=== PATIENT | male | born 1975 | race Caucasian/White ===

== ENCOUNTER 2022-08-16 14:00 | Outpatient (CLI) | payer MEDICARE, OTHER, SELFPAY ==
[2022-08-16 22:12] LABS: Albumin* 3.6 g/dL (3.3-5.0)
[2022-08-16 22:13] LABS: Chloride* 106 mmol/L (96-114); Potassium* 4.1 mmol/L (3.6-5.1); Sodium* 136 mmol/L (135-149)
[2022-08-16 22:14] LABS: Ethanol* < 0.01 % (0.01-0.03)
[2022-08-16 22:15] LABS: Aspartate Amino Transferase* 157 U/L (12-35); Bilirubin Total* 11.3 mg/dL (0.1-1.5); Blood Urea Nitrogen* 13 mg/dL (5-24); Carbon Dioxide* 21 mmol/L (20-32); Cholesterol* 173 mg/dL (90-199); Creatinine* 0.7 mg/dL (0.5-1.5); Estimated Glomerular Filt Rate 115 ml/min; Total Protein* 7.6 g/dL (6.0-8.3)
[2022-08-16 22:16] LABS: Alanine Aminotransferase* 66 U/L (4-50); Alkaline Phosphatase* 232 U/L (40-150); Calcium* 8.9 mg/dL (8.4-10.6); Glucose* 114 mg/dL (60-115); HDL Cholesterol* 13 mg/dL (>=40); LDL Cholesterol Calculated 124 mg/dL (<100); Triglycerides* 182 mg/dL (40-149)
== END 2022-08-16 14:01 | disposition home or self-care (01) ==
PROVIDERS: PCP Family Medicine; Visit Provider Family Medicine
DX: I10 Essential (primary) hypertension (principal); K76.9 Liver disease, unspecified; G47.00 Insomnia, unspecified; M17.0 Bilateral primary osteoarthritis of knee
CPT/HCPCS: 80053; 80061; 82077

== ENCOUNTER 2022-09-05 08:21 | Outpatient (CLI) | payer MEDICARE, OTHER, SELFPAY ==
--- NOTE | 2022-09-05 08:45 | CRLHL7_ITS ---
For Patients: As a result of the Century Cures Act, medical imaging exams and procedure reports are released immediately into your electronic medical record. You may view this report before your referring provider. If you have questions, please contact your health care provider. HISTORY: cirrhosis, TIPS TECHNIQUE: Grayscale ultrasound examination of the abdomen and retroperitoneum with 2D and spectral analysis and color Doppler interrogation of the hepatic vessels. COMPARISON: None. FINDINGS: The liver is diffusely coarsened and macronodular in contour. Trace ascites is present. The liver measures 20.7 cm. The common bile duct measures 4 millimeters. The gallbladder is distended with hyperechoic foci associated with the dependent wall consistent with small gallstones. The gallbladder wall is not thickened. The right kidney is normal without hydronephrosis. The visualized pancreas is heterogeneous. The right kidney measures 10.5 cm. Aorta is non aneurysmal. No IVC thrombus. Normal flow within the portal veins. TIPS is patent. Flow visualized within the hepatic veins. Normal flow within the splenic vein. IMPRESSION: TIPS is patent. Cirrhotic liver with mild ascites. No splanchnic venous thrombus. Dictated by Nelson Gutierrez MD @ 09/05/2022 11:20:19 AM (Electronically Signed)
== END 2022-09-05 08:22 | disposition home or self-care (01) ==
PROVIDERS: PCP Family Medicine; Visit Provider Family Medicine
DX: K74.60 Unspecified cirrhosis of liver (principal); R18.8 Other ascites
CPT/HCPCS: 76705; 93975

== ENCOUNTER 2022-09-19 09:26 | Outpatient (CLI) | payer MEDICARE, OTHER, SELFPAY | END 2022-09-19 09:27 | disposition home or self-care (01) | PROVIDERS: PCP Family Medicine; Visit Provider Emergency Medicine | DX: L03.90 Cellulitis, unspecified (principal) | CPT/HCPCS: 86140; 87070; 87186 ==

== ENCOUNTER 2022-11-21 13:33 | Outpatient (CLI) | payer MEDICARE, OTHER, SELFPAY | END 2022-11-21 13:34 | disposition home or self-care (01) | LOC: AMB 11-26 09:52 | PROVIDERS: PCP Family Medicine; Visit Provider Family Medicine | DX: R04.0 Epistaxis (principal); R53.1 Weakness | CPT/HCPCS: A0425; A0429 ==

== ENCOUNTER 2022-11-21 14:20 | Inpatient (IN) | payer MEDICARE, OTHER, SELFPAY ==
[2022-11-21] VITALS (37 sets, daily range): BP systolic 47–155; BP diastolic 35–76; PULSE 112–230; RESP 16–18; TEMP 36.2–36.7; O2SAT 79–100; BMI 32.3; BMI 35.2
--- NOTE | 2022-11-21 15:08 | ED_ITS ---
HPI - General Adult General Time Seen by Provider: 15:08 Date Seen: 11/21/22 Chief complaint: Weakness Stated complaint: Weakness Nosebleed Time Seen by Provider: 11/21/22 14:46 Source: patient, EMS and RN notes reviewed Mode of arrival: EMS Limitations: no limitations History of Present Illness HPI narrative: Patient is a 47-year-old male with a history of liver disease that admits to increasing jaundice. His fiancee feels he has had more confusion. He has not been taking his lactulose because of the ensuing diarrhea it causes. He is drinking some. He has had a nose bleed for last 3 days. It keeps returning. He has been having increasing weakness and falls. He did fall and hurt his right hip but he states it is not broken. Have discussed with him I would like to x-ray this. He does ultimately allow me to order an x-ray. He is complaining of weakness. No fevers. He thinks he was in to a doctor maybe 3 or 4 months ago, was told he did not need a paracentesis, thought there was maybe only a L there at the time. He has had to have paracentesis in the past. Denies any abdominal pain. Feels like his appetite has been good and he is eating okay. He is actually asking for something to drink right now. Patient reports that he has had a stent put in his liver before, presuming this is a tips procedure. Related Data Home Medications Medication Instructions Recorded Confirmed allopurinol 300 mg tablet 300 mg PO 06/06/22 09/19/22 amlodipine 5 mg tablet 5 mg PO 06/06/22 09/19/22 baclofen 5 mg tablet 5 mg PO 06/06/22 09/19/22 esomeprazole magnesium 40 mg 40 mg PO 06/06/22 09/19/22 capsule,delayed release gabapentin 100 mg capsule 100 mg PO 06/06/22 09/19/22 lisinopril 40 mg tablet 40 mg PO 06/06/22 09/19/22 furosemide 20 mg tablet 20 mg PO .Daily as needed PRN 09/19/22 09/19/22 spironolactone 50 mg tablet 50 mg PO BID PRN 09/19/22 09/19/22 Previous Rx's Medication Instructions Recorded rifaximin 550 mg tablet (Xifaxan) 550 mg PO BID #60 tabs 08/16/22 ropinirole 0.5 mg tablet 0.5 - 1 mg (1 - 2 x 0.5 mg) PO BID 08/16/22 PRN restless legs #60 tabs tramadol 50 mg tablet 50 mg PO BID PRN pain #60 tabs 08/16/22 zolpidem 5 mg tablet 5 mg PO QHS #30 tabs 08/16/22 hydroxyzine HCl 25 mg tablet 25 mg PO BID PRN itching #60 tabs 09/02/22 prednisone 20 mg tablet 20 mg PO BID #10 tabs 09/02/22 cefadroxil 500 mg capsule 500 mg PO BID #20 caps 09/19/22 doxycycline hyclate 100 mg capsule 100 mg PO BID #20 caps 09/19/22 oxycodone 5 mg tablet 5 mg PO QDAY PRN pain #10 tabs 09/19/22 levofloxacin 500 mg tablet 500 mg PO Q24H #10 tabs 09/22/22 Allergies Allergy/AdvReac Type Severity Reaction Status Date / Time adhesive tape Allergy Unknown Rash Verified 11/21/22 14:25 Review of Systems Status of ROS: Reports: 6 or more systems reviewed and unremarkable except as noted in History and below [facility] Medical History (Updated 11/21/22 @ 20:32 by Shelly Frias MD) Anemia ?D64.9 - Anemia, unspecified (ICD-10) Calf pain ?M79.669 - Pain in unspecified lower leg (ICD-10) Cellulitis ?L03.90 - Cellulitis, unspecified (ICD-10) Alcohol abuse ?F10.10 - Alcohol abuse, uncomplicated (ICD-10) Thrombocytopenia ?D69.6 - Thrombocytopenia, unspecified (ICD-10) Chronic liver disease ?K76.9 - Liver disease, unspecified (ICD-10) MAC (obstructive sleep apnea) ?G47.33 - Obstructive sleep apnea (adult) (pediatric) (ICD-10) Elevated LFTs ?R79.89 - Other specified abnormal findings of blood chemistry (ICD-10) Hyperlipidemia ?E78.5 - Hyperlipidemia, unspecified (ICD-10) FSHD (facioscapulohumeral muscular dystrophy) ?G71.02 - Facioscapulohumeral muscular dystrophy (ICD-10) Hypertension ?I10 - Essential (primary) hypertension (ICD-10) Gout ?M10.9 - Gout, unspecified (ICD-10) GERD (gastroesophageal reflux disease) ?K21.9 - Gastro-esophageal reflux disease without esophagitis (ICD-10) Surgical History (Updated 06/06/22 @ 10:29 by Marilee Aguilar ~ [facility], [facility]) History of surgery of liver ?Z98.890 - Other specified postprocedural states (ICD-10) Hernia ?K46.9 - Unspecified abdominal hernia without obstruction or gangrene (ICD- 10) Family History (Updated 06/06/22 @ 10:30 by Marilee Aguilar ~ [facility], [facility]) Mother No problems noted. Social History Smoking Status: Current every day smoker What tobacco products do you use: cigarettes Smoking packs per day: 0.25 Smoking cigarettes per day: 5.0 Do you use any of these nicotine containing products: None Second hand tobacco smoke exposure: No How often do you have a drink containing alcohol: 2-4 times a month How many standard drinks containing alcohol do you have on a typical day: 1 or 2 AUDIT-C Alcohol total score: 2 Non-prescribed substance use: denies use service: No Exam Const: Vital Signs, click to edit/add: Vital Signs - 24 hr 11/21/22 14:25 11/21/22 14:47 11/21/22 15:01 Temperature 97.2 F L Pulse Rate 121 H 124 H Pulse Rate [Pulse Oximeter] 121 H Respiratory Rate 16 Blood Pressure 47/35 L Blood Pressure [Le ft Upper Arm] 125/50 L Pulse Oximetry 100 96 95 Oxygen Delivery Me thod Room Air 11/21/22 15:02 11/21/22 15:03 11/21/22 15:04 Temperature Pulse Rate 126 H 122 H 124 H Pulse Rate [Pulse Oximeter] Respiratory Rate Blood Pressure 114/51 L Blood Pressure [Le ft Upper Arm] Pulse Oximetry 99 95 97 Oxygen Delivery Me thod 11/21/22 15:15 11/21/22 15:30 11/21/22 15:45 Temperature Pulse Rate 121 H 120 H 121 H Pulse Rate [Pulse Oximeter] Respiratory Rate Blood Pressure Blood Pressure [Le ft Upper Arm] Pulse Oximetry 96 95 98 Oxygen Delivery Me thod 11/21/22 15:57 11/21/22 16:31 11/21/22 16:32 Temperature Pulse Rate 123 H Pulse Rate [Pulse Oximeter] Respiratory Rate Blood Pressure 130/58 L Blood Pressure [Le ft Upper Arm] Pulse Oximetry 100 91 Oxygen Delivery [facility] 11/21/22 17:02 11/21/22 17:25 11/21/22 17:30 Temperature Pulse Rate 138 H Pulse Rate [Pulse Oximeter] Respiratory Rate Blood Pressure 117/48 L Blood Pressure [Le ft Upper Arm] Pulse Oximetry 79 L 79 L Oxygen Delivery [facility] 11/21/22 17:31 11/21/22 17:45 11/21/22 18:00 Temperature Pulse Rate 230 H 127 H Pulse Rate [Pulse Oximeter] Respiratory Rate Blood Pressure 142/62 H Blood Pressure [Le ft Upper Arm] Pulse Oximetry 79 L 80 L 80 L Oxygen Delivery [facility] 11/21/22 18:02 11/21/22 18:03 11/21/22 18:32 Temperature Pulse Rate 133 H 117 H Pulse Rate [Pulse Oximeter] Respiratory Rate Blood Pressure 155/46 H 107/59 L Blood Pressure [Le ft Upper Arm] Pulse Oximetry 80 L 82 L Oxygen Delivery [facility] 11/21/22 18:44 11/21/22 18:45 11/21/22 19:00 Temperature Pulse Rate 122 H 122 H 123 H Pulse Rate [Pulse Oximeter] Respiratory Rate Blood Pressure Blood Pressure [Le ft Upper Arm] Pulse Oximetry 93 93 95 Oxygen Delivery [facility] 11/21/22 19:02 11/21/22 19:13 11/21/22 19:15 Temperature 97.8 F Pulse Rate 119 H 122 H 120 H Pulse Rate [Pulse Oximeter] Respiratory Rate 16 Blood Pressure 109/41 L 109/41 L Blood Pressure [Le ft Upper Arm] Pulse Oximetry 92 90 91 Oxygen Delivery [facility] 11/21/22 19:29 11/21/22 19:30 11/21/22 20:11 Temperature 98.0 F 98.0 F 98.0 F Pulse Rate 121 H 115 H Pulse Rate [Pulse Oximeter] 121 H Respiratory Rate 16 16 18 Blood Pressure 116/44 L 125/46 L Blood Pressure [Le ft Upper Arm] 116/44 L Pulse Oximetry 94 94 Oxygen Delivery [facility] Room Air Documenting provider has reviewed patient's vital signs: yes Common normals: no apparent distress, oriented x3, no limitations and alert General appearance: cooperative, comfortable, disheveled, ill appearing and frail appearing Orientation/consciousness: Yes awake, Yes oriented to person, Yes oriented to place and Yes oriented to time HENMT: Common normals: normocephalic, head/scalp atraumatic, hearing grossly normal bilaterally and external ears normal Head and scalp: normocephalic and atraumatic External ear: external ears normal Other: Has the blue nasal clamp on. He can see a little bit of nonactive bleeding along the entrance of the right nares. Oropharynx normal, cannot see any active bleeding down the posterior pharynx. Eye: Common normals: PERRL and EOMs intact bilaterally Periorbital: periorbital findings normal Eyelid: eyelids normal Sclera: sclera abnormal (Bilateral scleral icterus) Laterality of scleral abnormality: bilateral Pupil: PERRL Neck & C-Spine: Common normals: full ROM, no lymphadenopathy, supple, no meningeal signs and thyroid normal Thyroid: thyroid normal Chest: Other: Patient has a multitude of spider hemangiomas on upper chest. Skin is jaundice. Resp: Common normals: normal respiratory effort, no retractions, no use of accessory muscles and clear to auscultation bilaterally Auscultation: clear to auscultation bilaterally Cardio: Common normals: regular rhythm, S1 normal heart sound, S2 normal heart sound, no gallops, no clicks, no murmurs and no rub Rate: tachycardic Rhythm: regular rhythm Heart sounds: S1 normal and S2 normal GI: Other: Patient's abdomen does look mildly distended but is soft. I do not feel a defin ite fluid wave. I do not feel any masses organomegaly. He is certainly not tender. Extremity: Other: Both of his lower extremities are significantly swollen and have some erythema in venous skin changes. Anteriorly on both lower extremities the skin is thickened, lichenified-like. Does not have any palpable calf tenderness when he squeeze but complains of significant tenderness on the distal anterolateral skin the area. I see no open wounds. He does have some generalized serous drainage that I can see through the skin on this lower extremity. Neuro: Common normals: oriented x3, CN's II-XII intact bilaterally and moves all extremities Sensorium/orientation: awake, alert, oriented to person, oriented to place and oriented to time Meningeal signs: no meningeal signs Course Course Hospital Course: With his clinical exam an active nasal bleeding, have reviewed with the patient that I am concerned about decompensated liver disease. The nasal clamp seems to be controlling the bleeding at this time. I would really like to see where his platelets and coags are at. He very well may need the nose packed. But we are in a stable situation at this time and I think if he needs some interventions with medications are platelets, would be beneficial to no before we have further bleeding. Will need to get labs obviously including functional liver assessment labs. Reevaluation(s) Reevaluation #1: Have reviewed with patient his liver findings, anemia. Reviewed the severity of the situation. He really does not want to go to any other hospital but have stressed to them that there are significant limits as to what we can handle here. It comes down to the fact that if he wants any chance at meaningful survival long-term, would recommend that he get some place where they have GI for further evaluation and management. Reviewed his alcohol level was 0.13. He states if he has not had a drink in a couple days how can still be that. He stated his liver isn't processing alcohol anymore. I reviewed with him that this is precisely what is happening. If he continues to drink he is undoubtedly going to kill himself. This may be a lot to take in for him but I do not say it on kindly to him. He really needs to know that there is really no safe amount of alcohol for him. We reviewed that his liver function is altered in his INR is at 2.69. His magnesium is low and will replace that as well. Time: 17:25 Reevaluation #2: Patient's family came out stating his nose was bleeding on the other side that he was feeling lightheaded. I went in to re-evaluate patient. He had a small little bloody serous drainage on a Kleenex, states he blew his nose a little. His right nostrils feeling plugged in reviewed with him that he needed to leave the packing in there. There is no active bleeding anywhere. His vitals were good. We reviewed the situation with inability to transfer with his other relatives that were here now. The hospitalists is willing to keep him. Patient is getting his blood at this time. He did talk about his like pain. Did order another 50 mcg IV fentanyl as I thought I was going to have to repack his nose on the left side. Turns out IV will not need it. He states his right leg was infected about 2 months ago. Did pass that on to the hospitalist as he is being moved down to the floor. Antibiotics were not initiated down here. I did not see any convincing evidence of her right lower extremity cellulitis when I compared to his left leg when I examined him earlier. Will have Dr. Castellanos reassess. Dr. Castellanos is aware that the patient is weight listed at [facility] but there is absolutely no time frame as to potential admission. Thus, patient is going to be placed on the floor. If there is the possibility for transfer or if he worsens, may need to re-evaluate bed status at all organizations tomorrow. Time: 20:06 Consultations Consultation #1: Nursing staff had been calling to see if there is potential transfers. There was nothing in the [facility] system, nothing at [place], nothing at [place], nothing in [facility], [facility] had no beds, [facility] potentially might be able to wait list him. I did subsequently speak with Dr. Quinonez from [facility] in [place] at 5:20 p.m.. If we cannot find placement for the patient locally around here, we can call him back and he may consider it but is not guaranting admission at this time. Time: 16:50 Vital Signs Vital signs: Initial Vital Signs Temperature 97.2 F L 11/21/22 14:25 Temperature Source Temporal Artery Scan 11/21/22 14:25 Pulse Rate 121 H 11/21/22 14:25 Pulse Rhythm Regular 11/21/22 14:25 Pulse Strength 3+ Normal 11/21/22 14:25 Respiratory Rate 16 11/21/22 14:25 Blood Pressure 125/50 L 11/21/22 14:25 Blood Pressure Mean 75 11/21/22 14:25 Blood Pressure Position Supine 11/21/22 14:25 Pulse Oximetry 100 11/21/22 14:25 Oxygen Delivery Method Room Air 11/21/22 14:25 Vital Signs Temperature 97.2 F L 11/21/22 14:25 Pulse Rate 121 H 11/21/22 14:25 Respiratory Rate 16 11/21/22 14:25 Blood Pressure 125/50 L 11/21/22 14:25 Pulse Oximetry 100 11/21/22 14:25 Oxygen Delivery Method Room Air 11/21/22 14:25 Temperature 98.0 F 11/21/22 20:11 Pulse Rate 115 H 11/21/22 20:11 Respiratory Rate 18 11/21/22 20:11 Blood Pressure 125/46 L 11/21/22 20:11 Pulse Oximetry 94 11/21/22 19:30 Oxygen Delivery Method Room Air 11/21/22 19:29 Medical Decision Making Lab Data Lab results reviewed: Yes I reviewed the patient's lab results Labs: Lab Results 11/21/22 Range/Units 15:37 WBC 15.01 H (4.50-11.00) K/uL RBC 1.95 L (4.30-5.90) m/uL Hgb 6.3 L* (13.5-17.5) gm/dL Hct 17.5 L (37.0-53.0) % MCV 90 (80-100) fL MCH 32 (26-34) pg MCHC 36 (32-36) gm/dL RDW Coeff of Zelda 18.4 H (11.5-15.5) % Plt Count 87 L (140-440) K/uL Neut % (Auto) 75.4 H (42.0-72.0) % Lymph % (Auto) 9.3 L (20-44) % [place] % (Auto) 10.7 (0.0-11.0) % Eos % (Auto) 2.7 (0.0-7.0) % Baso % (Auto) 0.5 (0.0-3.0) % Neut # (Auto) 11.30 H (1.7-7.0) K/uL Lymph # (Auto) 1.40 (0.90-2.90) K/uL [place] # (Auto) 1.60 H (0.00-0.90) K/UL Eos # (Auto) 0.40 (0.00-0.50) K/uL Baso # (Auto) 0.10 (0.00-0.30) K/uL INR 2.69 H (0.91-1.10) APTT 55 H (23-33) Seconds Sodium 118 L* (135-149) mmol/L Potassium 4.5 (3.6-5.1) mmol/L Chloride 92 L (96-114) mmol/L Carbon Dioxide 20 (20-32) mmol/L BUN 21 (5-24) mg/dL Creatinine 0.9 (0.5-1.5) mg/dL Estimated Creat Clear 111.37 Estimated GFR 106 ml/min Glucose 122 H (60-115) mg/dL Lactate 3.9 H (0.5-1.9) mmol/L Calcium 7.2 L (8.4-10.6) mg/dL Magnesium 1.4 L (1.5-2.6) mg/dL Total Bilirubin 10.4 H (0.1-1.5) mg/dL Direct Bilirubin 6.7 H (0.0-0.5) mg/dL AST 189 H (12-35) U/L ALT 65 H (4-50) U/L Alkaline Phosphatase 260 H (40-150) U/L Ammonia 21.0 (13.1-30.0) umol/L Total Protein 5.4 L (6.0-8.3) g/dL Albumin 2.0 L (3.3-5.0) g/dL Ethyl Alcohol 0.13 H (0.01-0.03) % Blood Type B Positive Antibody Screen NEGATIVE Crossmatch (AHG) See Detail Imaging Data Chest x-ray: Attestation: I have reviewed the pertinent imaging results. Radiologist's impression: Patient: RADHA GONZALEZ Facility:?[facility] Patient ID:?[id number] Site Patient ID:?[id number]. Site :?[id number] Study:?XRay Chest 1 VIEW-11/21/2022 4:43:30 PM Ordering Physician:?Altagracia Bravo Final Report: INDICATION: Injury COMPARISON: None TECHNIQUE: Single-view study FINDINGS: TUBES AND LINES: None. HEART AND MEDIASTINUM: The heart size is normal. The mediastinal contour appears normal for patient age. LUNGS AND PLEURAL SPACES: The lungs appear normal.The pleural spaces are unremarkable. OSSEOUS STRUCTURES: Age-appropriate appearance. No acute focal finding.Mild stable elevation right hemidiaphragm. IMPRESSION: No evidence of active pulmonary disease. Dictated by Yossi Diaz MD @ 11/21/2022 5:40:21 PM (Electronic Signature) XR right hip/pelvis: My impression: I Radiologist's impression: Patient: RADHA GONZALEZ Facility:?[facility] Patient ID:?[id number] Site Patient ID:?[id number]. Site :?[id number] Study:?XRay Hip Right 2 VIEWS 1 PELVIS-11/21/2022 4:44:43 PM Ordering Physician:?Altagracia Bravo Final Report: Indication: Injury with pain. Technique: Examination consists of an AP view of the pelvis and an AP and lateral view of the right hip Comparison: None Findings: Bones: Alignment is normal. No fractures or bone lesions. Joint spaces: Unremarkable. Soft tissues: Surgical clips in the pelvis. Impression: No acute fracture, dislocation or destructive process. Dictated by Yossi Diaz MD @ 11/21/2022 5:41:56 PM (Electronic Signature) XR right tib-fib: Attestation: I have reviewed the pertinent imaging results. Radiologist's impression: Patient: RADHA GONZALEZ Facility:?[facility] Patient ID:?[id number] Site Patient ID:?[id number]. Site :?[id number] Study:?XRay Extremity Right TIB/FIB 2 VIEWS-11/21/2022 4:42:57 PM Ordering Physician:?Altagracia Bravo Final Report: Indication: Injury Technique: Two views of the right tibia and fibula were acquired Comparison: None Findings: Mild deformity questioned of the medial tibial plateau. This may be projectional. Correlate with point tenderness in this area. Otherwise, there is no acute appearing finding involving the osseous of the right lower leg. Degenerative changes about the knee joint. Phleboliths in soft tissues. Soft tissue swelling Impression: Mild deformity questioned of the medial tibial plateau. This may be projectional. Correlate with point tenderness in this area. No other findings suggesting fracture. Dictated by Yossi Diaz MD @ 11/21/2022 5:30:43 PM (Electronic Signature) Note, patient's pain is lower in his leg, not anywhere near the area of question in the x-ray report. Critical Care Time Critical Care Time Critical Care Time: No Discharge Plan Discharge Clinical Impression: Epistaxis, Alcohol abuse, Acute blood loss anemia, Acute liver failure Patient Disposition: Admitted As Inpatient Condition: Unchanged Procedures Epistaxis Control Time Out Performed: Yes Nostril: Yes right Direct inspection: Yes unable to visualize Epistaxis treatment: Yes nasal tampon (Placed rhino rocket medium) Results of treatment: Yes bleeding controlled Estimated blood loss (if any): other (specify) (No bleeding currently, has had nasal clamp on and no active bleeding at this time) Complications: Yes none Conclusion: patient tolerated procedure
--- NOTE | 2022-11-21 15:17 | CRLHL7_ITS ---
For Patients: As a result of the Cures Act, medical imaging exams and procedure reports are released immediately into your electronic medical record. You may view this report before your referring provider. If you have questions, please contact your health care provider. Indication: Injury with pain. Technique: Examination consists of an AP view of the pelvis and an AP and lateral view of the right hip Comparison: None Findings: Bones: Alignment is normal. No fractures or bone lesions. Joint spaces: Unremarkable. Soft tissues: Surgical clips in the pelvis. Impression: No acute fracture, dislocation or destructive process. Dictated by Yossi Diaz MD @ 11/21/2022 5:41:56 PM (Electronically Signed)
--- NOTE | 2022-11-21 15:17 | CRLHL7_ITS ---
For Patients: As a result of the Cures Act, medical imaging exams and procedure reports are released immediately into your electronic medical record. You may view this report before your referring provider. If you have questions, please contact your health care provider. Indication: Injury Technique: Two views of the right tibia and fibula were acquired Comparison: None Findings: Mild deformity questioned of the medial tibial plateau. This may be projectional. Correlate with point tenderness in this area. Otherwise, there is no acute appearing finding involving the osseous of the right lower leg. Degenerative changes about the knee joint. Phleboliths in soft tissues. Soft tissue swelling Impression: Mild deformity questioned of the medial tibial plateau. This may be projectional. Correlate with point tenderness in this area. No other findings suggesting fracture. Dictated by Yossi Diaz MD @ 11/21/2022 5:30:43 PM (Electronically Signed)
--- NOTE | 2022-11-21 15:17 | CRLHL7_ITS ---
For Patients: As a result of the Cures Act, medical imaging exams and procedure reports are released immediately into your electronic medical record. You may view this report before your referring provider. If you have questions, please contact your health care provider. INDICATION: Injury COMPARISON: None TECHNIQUE: Single-view study FINDINGS: TUBES AND LINES: None. HEART AND MEDIASTINUM: The heart size is normal. The mediastinal contour appears normal for patient age. LUNGS AND PLEURAL SPACES: The lungs appear normal.The pleural spaces are unremarkable. OSSEOUS STRUCTURES: Age-appropriate appearance. No acute focal finding.Mild stable elevation right hemidiaphragm. IMPRESSION: No evidence of active pulmonary disease. Dictated by Yossi Diaz MD @ 11/21/2022 5:40:21 PM (Electronically Signed)
[2022-11-21] MEDS: fentaNYL 100 MCG/2 ML inj 25 MCG IVP (15:26)
[2022-11-21 15:42] LABS: Lactate* 3.9 mmol/L (0.5-1.9)
[2022-11-21 15:45] LABS: Immature Granulocytes Pct Auto 1.4 %; Mean Corpuscular HGB Conc 36 gm/dL (32-36); Mean Corpuscular Volume 90 fL (80-100)
[2022-11-21 15:48] LABS: Slide Review Reflex No; White Blood Count* 15.01 K/uL (4.50-11.00)
[2022-11-21 15:49] LABS: Hematocrit 17.5 % (37.0-53.0); Hemoglobin* 6.3 gm/dL (13.5-17.5); Mean Corpuscular Hemoglobin 32 pg (26-34); Platelet Count* 87 K/uL (140-440); RDW Coefficient of Variation % 18.4 % (11.5-15.5); Red Blood Count 1.95 m/uL (4.30-5.90)
[2022-11-21 15:50] LABS: Basophils Percent Auto 0.5 % (0.0-3.0); Eosinophils Percent Auto 2.7 % (0.0-7.0); Lymphocytes Percent Auto 9.3 % (20-44); Monocytes Percent Auto 10.7 % (0.0-11.0); Neutrophils Percent Auto 75.4 % (42.0-72.0)
[2022-11-21 15:58] LABS: Chloride* 92 mmol/L (96-114)
[2022-11-21 15:59] LABS: Potassium* 4.5 mmol/L (3.6-5.1)
[2022-11-21 16:00] LABS: Creatinine* 0.9 mg/dL (0.5-1.5); Est. Creatinine Clearance* 111.37; Estimated Glomerular Filt Rate 106 ml/min
[2022-11-21 16:01] LABS: Alanine Aminotransferase* 65 U/L (4-50); Alkaline Phosphatase* 260 U/L (40-150); Aspartate Amino Transferase* 189 U/L (12-35); Bilirubin Direct* 6.7 mg/dL (0.0-0.5); Bilirubin Total* 10.4 mg/dL (0.1-1.5); Blood Urea Nitrogen* 21 mg/dL (5-24); Calcium* 7.2 mg/dL (8.4-10.6); Carbon Dioxide* 20 mmol/L (20-32); Glucose* 122 mg/dL (60-115); Total Protein* 5.4 g/dL (6.0-8.3)
[2022-11-21 16:02] LABS: Ethanol* 0.13 % (0.01-0.03); Magnesium* 1.4 mg/dL (1.5-2.6)
[2022-11-21 16:04] LABS: INR 2.69 (0.91-1.10); Prothrombin Time 29.9 Seconds
[2022-11-21 16:05] LABS: Partial Thromboplastin Time* 55 Seconds (23-33)
[2022-11-21 16:07] LABS: Sodium* 118 mmol/L (135-149)
--- NOTE | 2022-11-21 16:13 | PC.NURSE ---
NA 118. notified. No beds at [facility] who has ENT. Patient is on waitlist at [facility]. 6-8 hour wait.
--- NOTE | 2022-11-21 16:51 | ED.NURSE ---
[facility] pt placement called and stated they do have an extensive waitlist, which is days. Dr Jackson updated.
[2022-11-21] MEDS: PHYTONADIONE (VIT K1) 5 MG in 0.9 % SODIUM CHLORIDE 50 ml 50 ML 100 MG IVPB (18:05)
[2022-11-21] MEDS: PANTOPRAZOLE SODIUM 40 MG INJ IVP (18:47)
[2022-11-21] MEDS: MAGNESIUM IV 4 GM/100 ML PIGGYBACK IVPB ×2 (18:52→23:41)
[2022-11-21] MEDS: 0.9 % SODIUM CHLORIDE 250 ml IV (18:57)
[2022-11-21] MEDS: fentaNYL 100 MCG/2 ML inj 50 MCG IVP (20:07)
--- NOTE | 2022-11-21 22:03 | P.IMHP_ITS ---
Hospitalist- H&P: HPI History of Present Illness Date Seen: 11/21/22 Chief complaint: Weakness Nosebleed Narrative: Stephen Lazar is a 47 year old male with end-stage alcoholic cirrhosis and facioscapulohumeral muscular dystrophy (FSMD) presents with acute on chronic weakness and epistaxis and worsening pain and drainage from his right leg. Patient reports that he has had longstanding progressive weakness due to FSMD. He reports that he normally has trouble walking and uses furniture and holding onto the wall for balance. Today he was too weak to even walk. He was able to walk earlier today and yesterday. He also notes that he has had a profound nose bleed for the last 3 days. He has been unable to get it to stop. He says it was bleeding like a faucet on and off. He has cirrhosis of the liver. He tells me about 3 years ago he was on the transplant list at the [facility]. He got a TIPS procedure and stopped drinking for a year and got good enough to get off the transplant list. He tells me that he his MELD score was 29 at the highest. He was getting weekly paracentesis for ascites before the tips procedure. He reports he is drinking again but only drinking modestly. He tells me his last drink was 3 days ago. Around 2-3 years ago he was evaluated with upper endoscopy and was told he did not have esophageal varices. He has not had any gastrointestinal bleeding, hematochezia or melena. His alcohol level in the emergency department this afte rnoon was 0.13. This winter he was treated with 3 different antibiotics, Levaquin, doxycycline, cefadroxil for cellulitis of his right leg. He does think it helps for a while but now it is worse. He recognizes that he is retaining more fluid and having more edema in his legs. He has not had a fever. He reports his breathing is gradually getting worse which he attributes to FSMD gradually getting worse. He has not had chest pain. He has not had nausea or vomiting. He has been eating normally. No abdominal pain. He reports his bowels are normal without diarrhea or constipation. Review of Systems Narrative: Review of systems is unremarkable except as noted above [facility] Medical History (Updated 11/21/22 @ 22:36 by Basil Castellanos MD) Generalized weakness ?R53.1 - Weakness (ICD-10) Hypomagnesemia ?E83.42 - Hypomagnesemia (ICD-10) Hyponatremia ?E87.1 - Hypo-osmolality and hyponatremia (ICD-10) Sinus tachycardia ?R00.0 - Tachycardia, unspecified (ICD-10) Coagulopathy ?D68.9 - Coagulation defect, unspecified (ICD-10) Venous stasis dermatitis ?I87.2 - Venous insufficiency (chronic) (peripheral) (ICD-10) End stage liver disease ?K72.10 - Chronic hepatic failure without coma (ICD-10) Anemia ?D64.9 - Anemia, unspecified (ICD-10) Insomnia ?G47.00 - Insomnia, unspecified (ICD-10) Infection due to severe acute respiratory syndrome coronavirus 2 (SARS-CoV-2) ?U07.1 - COVID-19 (ICD-10) Abdominal pain ?R10.9 - Unspecified abdominal pain (ICD-10) Hyperextension deformity of knee ?M21.869 - Other specified acquired deformities of unspecified lower leg (ICD-10) Effusion, right knee ?M25.461 - Effusion, right knee (ICD-10) Osteoarthritis of knees, bilateral ?M17.0 - Bilateral primary osteoarthritis of knee (ICD-10) Muscular dystrophy ?G71.00 - Muscular dystrophy, unspecified (ICD-10) Calf pain ?M79.669 - Pain in unspecified lower leg (ICD-10) Cellulitis ?L03.90 - Cellulitis, unspecified (ICD-10) Alcohol abuse ?F10.10 - Alcohol abuse, uncomplicated (ICD-10) Thrombocytopenia ?D69.6 - Thrombocytopenia, unspecified (ICD-10) MAC (obstructive sleep apnea) ?G47.33 - Obstructive sleep apnea (adult) (pediatric) (ICD-10) Elevated LFTs ?R79.89 - Other specified abnormal findings of blood chemistry (ICD-10) Hyperlipidemia ?E78.5 - Hyperlipidemia, unspecified (ICD-10) FSHD (facioscapulohumeral muscular dystrophy) ?G71.02 - Facioscapulohumeral muscular dystrophy (ICD-10) Hypertension ?I10 - Essential (primary) hypertension (ICD-10) Gout ?M10.9 - Gout, unspecified (ICD-10) GERD (gastroesophageal reflux disease) ?K21.9 - Gastro-esophageal reflux disease without esophagitis (ICD-10) Surgical History (Updated 11/21/22 @ 22:25 by Basil Castellanos MD) S/P TIPS (transjugular intrahepatic portosystemic shunt) ?Z95.828 - Presence of other vascular implants and grafts (ICD-10) History of surgery of liver ?Z98.890 - Other specified postprocedural states (ICD-10) Hernia ?K46.9 - Unspecified abdominal hernia without obstruction or gangrene (ICD- 10) Family History (Updated 11/21/22 @ 22:25 by Basil Castellanos MD) Mother No problems noted. Father High blood pressure Social History (Updated 11/21/22 @ 22:26 by Basil Castellanos MD) Narrative: He lives in [place] with his significant other, Shreya, he designates her as healthcare power of criminal attorney. Code status is full. Smoking Status: Current every day smoker What tobacco products do you use: cigarettes Smoking packs per day: 0.25 Smoking cigarettes per day: 5.0 Do you use any of these nicotine containing products: None Second hand tobacco smoke exposure: No How often do you have a drink containing alcohol: 2-4 times a month How many standard drinks containing alcohol do you have on a typical day: 1 or 2 AUDIT-C Alcohol total score: 2 Non-prescribed substance use: denies use service: No Meds Home Medications and Allergies Home Medications Medication Instructions Recorded Confirmed Type allopurinol 300 mg tablet 300 mg PO DAILY 06/06/22 11/21/22 History amlodipine 5 mg tablet 5 mg PO .qod 06/06/22 11/21/22 History baclofen 5 mg tablet 5 mg PO BID PRN 06/06/22 11/21/22 History esomeprazole magnesium 40 mg 40 mg PO DAILY 06/06/22 11/21/22 History capsule,delayed release gabapentin 100 mg capsule 200 mg PO TID 06/06/22 11/21/22 History lisinopril 40 mg tablet 40 mg PO .qod 06/06/22 11/21/22 History furosemide 20 mg tablet 20 mg PO .Daily as needed PRN 09/19/22 11/21/22 History spironolactone 50 mg tablet 50 mg PO DAILY PRN 09/19/22 11/21/22 History Allergies Allergy/AdvReac Type Severity Reaction Status Date / Time adhesive tape Allergy Unknown Rash Verified 11/21/22 14:25 Exam Narrative: Exam Narrative: He is alert and appears in no distress. He is oriented to his circumstances. He gives good detailed history of recent and remote events. Speech is fluent. He is jaundiced. He has moderate scleral icterus. Extraocular movements are full. Oropharynx is normal except small airway. Neck is supple without mass or adenopathy. Respirations are clear to auscultation without wheezing rales or rhonchi. Breathing is unlabored. Cardiovascular: S1, S2, regular tachycardia. 2/6 systolic ejection murmur. Abdomen is soft. He has no tenderness or mass. External genitalia normal. Lower extremities are examined. 4+ edema on the right and 2 to 3+ edema on the left. Mild venous stasis skin changes on the left with mild oozing and ulceration. On the right calf he has moderate erythema with circumferential ulcerations, cobblestoning, open ulcers oozing serosanguineous fluid and some of them with purulent drainage as well. He has intact pedal pulses. He moves all 4 extremities well. Const: Vital Signs, click to edit/add: Vital Signs - 24 hr 11/21/22 14:25 11/21/22 14:47 11/21/22 15:01 Temperature 97.2 F L Pulse Rate 121 H 124 H Pulse Rate [Pulse Oximeter] 121 H Respiratory Rate 16 Blood Pressure 47/35 L Blood Pressure [Le ft Upper Arm] 125/50 L Pulse Oximetry 100 96 95 Oxygen Delivery Me thod Room Air 11/21/22 15:02 11/21/22 15:03 11/21/22 15:04 Temperature Pulse Rate 126 H 122 H 124 H Pulse Rate [Pulse Oximeter] Respiratory Rate Blood Pressure 114/51 L Blood Pressure [Le ft Upper Arm] Pulse Oximetry 99 95 97 Oxygen Delivery Me thod 11/21/22 15:15 11/21/22 15:30 11/21/22 15:45 Temperature Pulse Rate 121 H 120 H 121 H Pulse Rate [Pulse Oximeter] Respiratory Rate Blood Pressure Blood Pressure [Le ft Upper Arm] Pulse Oximetry 96 95 98 Oxygen Delivery Me thod 11/21/22 15:57 11/21/22 16:31 11/21/22 16:32 Temperature Pulse Rate 123 H Pulse Rate [Pulse Oximeter] Respiratory Rate Blood Pressure 130/58 L Blood Pressure [Le ft Upper Arm] Pulse Oximetry 100 91 Oxygen Delivery Sc thod 11/21/22 17:02 11/21/22 17:25 11/21/22 17:30 Temperature Pulse Rate 138 H Pulse Rate [Pulse Oximeter] Respiratory Rate Blood Pressure 117/48 L Blood Pressure [Le ft Upper Arm] Pulse Oximetry 79 L [facility] 17:31 11/21/22 17:45 11/21/22 18:00 Temperature Pulse Rate 230 H 127 H Pulse Rate [Pulse Oximeter] Respiratory Rate Blood Pressure 142/62 H Blood Pressure [Le ft Upper Arm] Pulse Oximetry 79 L 80 L 80 L [facility]21/22 18:02 11/21/22 18:03 11/21/22 18:32 Temperature Pulse Rate 133 H 117 H Pulse Rate [Pulse Oximeter] Respiratory Rate Blood Pressure 155/46 H 107/59 L Blood Pressure [Le ft Upper Arm] Pulse Oximetry 80 L 82 L [facility] 11/21/22 18:44 11/21/22 18:45 11/21/22 19:00 Temperature Pulse Rate 122 H 122 H 123 H Pulse Rate [Pulse Oximeter] Respiratory Rate Blood Pressure Blood Pressure [Le ft Upper Arm] Pulse Oximetry 93 93 95 [facility] 11/21/22 19:02 11/21/22 19:13 11/21/22 19:15 Temperature 97.8 F Pulse Rate 119 H 122 H 120 H Pulse Rate [Pulse Oximeter] Respiratory Rate 16 Blood Pressure 109/41 L 109/41 L Blood Pressure [Le ft Upper Arm] Pulse Oximetry 92 90 91 [facility] 11/21/22 19:29 11/21/22 19:30 11/21/22 20:11 Temperature 98.0 F 98.0 F 98.0 F Pulse Rate 121 H 115 H Pulse Rate [Pulse Oximeter] 121 H Respiratory Rate 16 16 18 Blood Pressure 116/44 L 125/46 L Blood Pressure [Le ft Upper Arm] 116/44 L Pulse Oximetry 94 94 [facility] 11/21/22 21:24 11/21/22 21:39 Temperature 97.3 F L 97.6 F Pulse Rate 112 H 112 H Pulse Rate [Pulse Oximeter] Respiratory Rate 18 16 Blood Pressure 145/76 H 126/50 L Blood Pressure [Le ft Upper Arm] Pulse Oximetry 100 Oxygen Delivery Me thod Documenting provider has reviewed patient's vital signs: yes Hospitalist - H&P: Result Labs Labs: Short CBC 11/21/22 Range/Units 15:37 WBC 15.01 H (4.50-11.00) K/uL Hgb 6.3 L* (13.5-17.5) gm/dL Hct 17.5 L (37.0-53.0) % Plt Count 87 L (140-440) K/uL BMP 11/21/22 15:37 Sodium 118 L* Potassium 4.5 Chloride 92 L Carbon Dioxide 20 BUN 21 Creatinine 0.9 Glucose 122 H Calcium 7.2 L Liver Function 11/21/22 Range/Units 15:37 Total Bilirubin 10.4 H (0.1-1.5) mg/dL Direct Bilirubin 6.7 H (0.0-0.5) mg/dL AST 189 H (12-35) U/L ALT 65 H (4-50) U/L Alkaline Phosphatase 260 H (40-150) U/L Albumin 2.0 L (3.3-5.0) g/dL Assessment and Plan Assessment and plan (1) Alcohol abuse: Problem comment: Patient continues to drink alcohol in the face of end-stage liver disease. Having recent history of abstinence for 1 year he tells me he can do it again. He understands that consideration of transplant requires 6 months of sobriety. Status: Acute (2) HTN (hypertension): Status: Acute (3) Acute blood loss anemia: Problem comment: Due to coagulopathy causing severe nose bleed. Transfuse blood, 2 units. Status: Acute (4) Epistaxis: Problem comment: Nasal packing placed today.. Status: Acute (5) Cellulitis: Problem comment: MSSA Klebsiella oxytoca 09/2022 Status: Acute (6) Venous stasis dermatitis: Problem comment: Skin changes consistent with venous stasis dermatitis in both legs. Right leg is much worse, finding suggestive of cellulitis with erythema, tenderness and draining wounds. Status: Acute (7) Calf pain: Problem comment: Acute on chronic right calf pain. Due to chronic venous stasis disease, cellulitis, possibly DVT. Check ultrasound. Patient is a poor candidate for opioid therapy due to hepatic encephalopathy history and use of tramadol and gabapentin and benzodiazepines. Status: Acute (8) FSHD (facioscapulohumeral muscular dystrophy): Problem comment: Slowly progressive disability. Status: Acute (9) Coagulopathy: Problem comment: Due to end-stage liver disease. High risk for bleeding and clotting. Status: Acute (10) End stage liver disease: Problem comment: TIPS February 2020. Prior to that was on liver transplant list. MELD score prior to tips was 29. Meld-Na score today is 32. Status: Acute (11) Sinus tachycardia: Problem comment: Patient reports that his current sinus tachycardia in the 110-120 Status: Acute (12) Hyponatremia: Problem comment: Due to end-stage liver disease. Will hold antihypertensive medicines. He has been taking amlodipine and lisinopril alternating every other day. Will stop both of them now. He has not been taking spironolactone or furosemide regularly. Consider starting furosemide if necessary for volume control in light of hyponatremia. I will also add low-dose midodrine. If blood pressure increases midodrine can be stopped. Status: Acute (13) Hypomagnesemia: Problem comment: Due to chronic alcohol abuse. Replace with IV magnesium and then oral. Status: Acute (14) Generalized weakness: Problem comment: Combination of FS MD, end-stage cirrhosis chronic alcohol abuse and acutely worse due to epistaxis and anemia. PT and OT to evaluate.. Status: Acute Plan Patient is quite ill due to end-stage liver disease. I spoke quite frankly about his poor prognosis, need for sobriety and liver transplant. Recommend he contact the [facility] again to see if he can get back on the transplant list. Attempts to transfer him for higher level of care were unsuccessful tonight. In this hospital we can address his hyponatremia, blood- loss anemia, monitor for alcohol withdrawal, bleeding. Plan of care discussed with the patient. He is in agreement with this. Total time spent today is 90 minutes, 60 minutes in coordination of care discussing with patient and other providers management of end-stage liver disease, coagulopathy, bleeding.
[2022-11-21] MEDS: levoFLOXacin 500 MG TABLET PO (22:57)
[2022-11-21] MEDS: TRAMADOL HCL 50 MG TABLET PO (22:57)
[2022-11-21] MEDS: THIAMINE 100 MG TABLET PO (22:57)
[2022-11-21] MEDS: MIDODRINE HCL 5 MG TABLET PO (23:26)
[2022-11-21] MEDS: hydrOXYzine pamoate 25 MG CAPSULE PO (23:27)
[2022-11-22] VITALS (15 sets, daily range): BP systolic 102–136; BP diastolic 42–72; PULSE 108–126; RESP 16–22; TEMP 36.1–36.9; O2SAT 97–100
[2022-11-22] MEDS: ZOLPIDEM 5 MG TABLET PO (00:05)
[2022-11-22 00:18] LABS: Amphetamine Screen Urine Negative (Negative); Barbiturate Screen Urine Negative (Negative); Benzodiazepines Screen Urine Negative (Negative); Cannabinoid Screen Urine Negative (Negative); Cocaine Screen Urine Negative (Negative); Methadone Screen Urine Negative (Negative); Methamphetamines Screen Urine Negative (Negative); Opiate Screen Urine Negative (Negative); Oxycodone Screen Urine Negative (Negative); Phencyclidine Screen Urine Negative (Negative); Tricyclic Antidepressant Urine Negative (Negative)
--- NOTE | 2022-11-22 06:57 | PC.NURSE ---
Shift note: Pt is moderately confused, repeating the same questions or stating the same things. Tachycardic, which is per pt statement is normal for him, MD aware. SIWA 4-6 throughout the night. Pt ambulates with assist of 2 and EZ-stand. Needs instructions to be repeated to him several times. Continues with the nose bleed, has some blood from penis. Essential tremors, generalized pain present, RN treated per eMAR.
--- NOTE | 2022-11-22 07:16 | CRLHL7_ITS ---
For Patients: As a result of the Century Cures Act, medical imaging exams and procedure reports are released immediately into your electronic medical record. You may view this report before your referring provider. If you have questions, please contact your health care provider. Indication: Liver failure. Ascites. Technique: Ultrasound abdomen limited. Comparison: 09/05/2022. Findings/Impression: Moderate ascites present in all 4 quadrants. Dictated by Anthony Chu MD @ 11/22/2022 8:18:46 AM (Electronically Signed)
--- NOTE | 2022-11-22 07:34 | PC.NURSE ---
PHARMACY: 3% Sodium Chloride was administered by RN at 2300 on 11/21/22, administration verified by Rogelio/Karin Peters. 120ml administered over 4 hours via IV (at 30ml/hour).
--- NOTE | 2022-11-22 08:00 | CRLHL7_ITS ---
For Patients: As a result of the Century Cures Act, medical imaging exams and procedure reports are released immediately into your electronic medical record. You may view this report before your referring provider. If you have questions, please contact your health care provider. INDICATION: Leg pain and swelling. TECHNIQUE: Ultrasound venous duplex bilateral lower extremity. Compression venous exam was performed using hampton-scale, color Doppler, and spectral Doppler analysis. COMPARISON: None. FINDINGS: Deep veins: Sonographic imaging demonstrates the bilateral common femoral, deep femoral, superficial femoral, popliteal, and posterior tibial veins to be fully compressible with normal color Doppler blood flow. Superficial veins: Greater saphenous vein is fully compressible. No popliteal cyst. IMPRESSION: Normal bilateral lower extremity venous ultrasound, no sign of deep venous thrombosis. Dictated by Anthony Chu MD @ 11/22/2022 8:15:32 AM (Electronically Signed)
--- NOTE | 2022-11-22 08:08 | PC.NURSE ---
Very hard to assess as he does not appear to want to intact when questioned and then gets angry when you offer something to him.
[2022-11-22 08:47] LABS: Basophils Percent Auto 0.2 % (0.0-3.0); Eosinophils Percent Auto 2.5 % (0.0-7.0); Hematocrit 16.5 % (37.0-53.0); Immature Granulocytes Pct Auto 4.2 %; Lymphocytes Percent Auto 9.6 % (20-44); Mean Corpuscular HGB Conc 35 gm/dL (32-36); Mean Corpuscular Hemoglobin 32 pg (26-34); Mean Corpuscular Volume 91 fL (80-100); Monocytes Percent Auto 10.1 % (0.0-11.0); Neutrophils Percent Auto 73.4 % (42.0-72.0); Platelet Count* 66 K/uL (140-440); RDW Coefficient of Variation % 19.7 % (11.5-15.5); Red Blood Count 1.82 m/uL (4.30-5.90); White Blood Count* 21.67 K/uL (4.50-11.00)
[2022-11-22 09:02] LABS: Hemoglobin* 5.8 gm/dL (13.5-17.5)
[2022-11-22 09:03] LABS: Slide Review Reflex No
[2022-11-22 09:06] LABS: Albumin* 1.7 g/dL (3.3-5.0); Chloride* 89 mmol/L (96-114)
[2022-11-22 09:07] LABS: INR 4.01 (0.91-1.10); Prothrombin Time 40.8 Seconds
[2022-11-22 09:08] LABS: Creatinine* 1.2 mg/dL (0.5-1.5); Est. Creatinine Clearance* 83.53; Estimated Glomerular Filt Rate 75 ml/min
[2022-11-22 09:09] LABS: Alanine Aminotransferase* 83 U/L (4-50); Alkaline Phosphatase* 205 U/L (40-150); Aspartate Amino Transferase* 411 U/L (12-35); Bilirubin Direct* 7.7 mg/dL (0.0-0.5); Bilirubin Total* 12.1 mg/dL (0.1-1.5); Blood Urea Nitrogen* 22 mg/dL (5-24); Calcium* 7.1 mg/dL (8.4-10.6); Carbon Dioxide* 15 mmol/L (20-32); Glucose* 82 mg/dL (60-115); Total Protein* 4.7 g/dL (6.0-8.3)
[2022-11-22 09:10] LABS: Magnesium* 1.9 mg/dL (1.5-2.6)
[2022-11-22 09:16] LABS: Sodium* 116 mmol/L (135-149)
[2022-11-22] MEDS: allopurinoL 300 MG TABLET PO (09:22)
[2022-11-22] MEDS: MULTIVITAMIN/MINERALS 1 TABLET 1 TAB PO (09:22)
[2022-11-22] MEDS: THIAMINE 100 MG TABLET PO (09:23)
[2022-11-22] MEDS: GABAPENTIN 100 MG CAPSULE 200 MG PO (09:23)
[2022-11-22] MEDS: OMEPRAZOLE 20 MG CAPSULE DR 40 MG PO (09:24)
[2022-11-22] MEDS: NON-FORMULARY MEDICATION (Rifaximin [Xifaxan] 550 mg tablet) 550 EACH PO (09:24)
[2022-11-22] MEDS: MAGNESIUM OXIDE 400 MG TABLET PO (09:24)
[2022-11-22] MEDS: FOLIC ACID 1 MG TABLET PO (09:24)
--- NOTE | 2022-11-22 09:54 | P.IMPN_ITS ---
Exam Const: Vital Signs, click to edit/add: Vital Signs - 24 hr 11/21/22 14:25 11/21/22 14:47 11/21/22 15:01 Temperature 97.2 F L Pulse Rate 121 H 124 H Pulse Rate [Pulse Oximeter] 121 H Respiratory Rate 16 Blood Pressure 47/35 L Blood Pressure [Le ft Upper Arm] 125/50 L Blood Pressure [Ri ght Radial Artery] Pulse Oximetry 100 96 95 Oxygen Delivery Ny thod Room Air 11/21/22 15:02 11/21/22 15:03 11/21/22 15:04 Temperature Pulse Rate 126 H 122 H 124 H Pulse Rate [Pulse Oximeter] Respiratory Rate Blood Pressure 114/51 L Blood Pressure [Le ft Upper Arm] Blood Pressure [Ri ght Radial Artery] Pulse Oximetry 99 95 97 [facility] 15:15 11/21/22 15:30 11/21/22 15:45 Temperature Pulse Rate 121 H 120 H 121 H Pulse Rate [Pulse Oximeter] Respiratory Rate Blood Pressure Blood Pressure [Le ft Upper Arm] Blood Pressure [Ri ght Radial Artery] Pulse Oximetry 96 95 98 [facility] 11/21/22 15:57 11/21/22 16:31 11/21/22 16:32 Temperature Pulse Rate 123 H Pulse Rate [Pulse Oximeter] Respiratory Rate Blood Pressure 130/58 L Blood Pressure [Le ft Upper Arm] Blood Pressure [Ri ght Radial Artery] Pulse Oximetry 100 91 Oxygen Delivery Ny thod 11/21/22 17:02 11/21/22 17:25 11/21/22 17:30 Temperature Pulse Rate 138 H Pulse Rate [Pulse Oximeter] Respiratory Rate Blood Pressure 117/48 L Blood Pressure [Le ft Upper Arm] Blood Pressure [Ri ght Radial Artery] Pulse Oximetry 79 L 79 L [facility] 11/[facility]/22 17:31 11/21/22 17:45 11/21/22 18:00 Temperature Pulse Rate 230 H 127 H Pulse Rate [Pulse Oximeter] Respiratory Rate Blood Pressure 142/62 H Blood Pressure [Le ft Upper Arm] Blood Pressure [Ri ght Radial Artery] Pulse Oximetry 79 L 80 L 80 L Oxygen Delivery Ny thod 11/21/22 18:02 11/21/22 18:03 11/21/22 18:32 Temperature Pulse Rate 133 H 117 H Pulse Rate [Pulse Oximeter] Respiratory Rate Blood Pressure 155/46 H 107/59 L Blood Pressure [Le ft Upper Arm] Blood Pressure [Ri ght Radial Artery] Pulse Oximetry 80 L 82 L [facility] 11/21/22 18:44 11/21/22 18:45 11/21/22 19:00 Temperature Pulse Rate 122 H 122 H 123 H Pulse Rate [Pulse Oximeter] Respiratory Rate Blood Pressure Blood Pressure [Le ft Upper Arm] Blood Pressure [Ri ght Radial Artery] Pulse Oximetry 93 93 95 [facility] 11/21/22 19:02 11/21/22 19:13 11/21/22 19:15 Temperature 97.8 F Pulse Rate 119 H 122 H 120 H Pulse Rate [Pulse Oximeter] Respiratory Rate 16 Blood Pressure 109/41 L 109/41 L Blood Pressure [Le ft Upper Arm] Blood Pressure [Ri ght Radial Artery] Pulse Oximetry 92 90 91 [facility] 11/21/22 19:29 11/21/22 19:30 11/21/22 20:11 Temperature 98.0 F 98.0 F 98.0 F Pulse Rate 121 H 115 H Pulse Rate [Pulse Oximeter] 121 H Respiratory Rate 16 16 18 Blood Pressure 116/44 L 125/46 L Blood Pressure [Le ft Upper Arm] 116/44 L Blood Pressure [Ri ght Radial Artery] Pulse Oximetry 94 94 [facility] 11/21/22 21:04 11/21/22 21:24 11/21/22 21:39 Temperature 97.4 F L 97.3 F L 97.6 F Pulse Rate 112 H 112 H Pulse Rate [Pulse Oximeter] 112 H Respiratory Rate 16 18 16 Blood Pressure 145/76 H 126/50 L Blood Pressure [Le ft Upper Arm] Blood Pressure [Ri ght Radial Artery] 145/76 H Pulse Oximetry 99 100 [facility] 11/21/22 21:44 11/21/22 22:00 11/21/22 22:07 Temperature 97.6 F 97.3 F L Pulse Rate 113 H 116 H Pulse Rate [Pulse Oximeter] 112 H Respiratory Rate 16 16 Blood Pressure 136/57 L Blood Pressure [Le ft Upper Arm] Blood Pressure [Ri ght Radial Artery] 145/76 H Pulse Oximetry 99 99 Oxygen Delivery Me thod Room Air 11/21/22 22:29 11/22/22 00:47 11/22/22 00:47 Temperature 97.8 F 97.6 F Pulse Rate 115 H Pulse Rate [Pulse Oximeter] 115 H 112 H Respiratory Rate 18 16 18 Blood Pressure 129/45 L Blood Pressure [Le ft Upper Arm] Blood Pressure [Ri ght Radial Artery] 136/57 L Pulse Oximetry 98 98 [facility] 11/22/22 01:02 11/22/22 03:00 11/22/22 05:00 Temperature 98.3 F 98.4 F Pulse Rate Pulse Rate [Pulse Oximeter] 120 H 117 H 126 H Respiratory Rate 16 16 18 Blood Pressure Blood Pressure [Le ft Upper Arm] Blood Pressure [Ri ght Radial Artery] 119/47 L Pulse Oximetry 98 98 99 Oxygen Delivery [facility] Room Air Room Air Room Air 11/22/22 06:00 11/22/22 07:00 Temperature 97.5 F L Pulse Rate Pulse Rate [Pulse Oximeter] 124 H 119 H Respiratory Rate 18 22 Blood Pressure Blood Pressure [Le ft Upper Arm] Blood Pressure [Ri ght Radial Artery] 111/59 L Pulse Oximetry 97 97 Oxygen Delivery [facility] Room Air Room Air Labs Labs: Laboratory Results - last 24 hr 11/21/22 11/21/22 11/22/22 15:37 23:57 08:10 WBC 15.01 H 21.67 H RBC 1.95 L 1.82 L Hgb 6.3 L* 5.8 L* Hct 17.5 L 16.5 L MCV 90 91 MCH 32 32 MCHC 36 35 RDW Coeff of Zelda 18.4 H 19.7 H Plt Count 87 L 66 L Neut % (Auto) 75.4 H 73.4 H Lymph % (Auto) 9.3 L 9.6 L [place] % (Auto) 10.7 10.1 Eos % (Auto) 2.7 2.5 Baso % (Auto) 0.5 0.2 Neut # (Auto) 11.30 H 15.90 H Lymph # (Auto) 1.40 2.10 [place] # (Auto) 1.60 H 2.20 H Eos # (Auto) 0.40 0.50 Baso # (Auto) 0.10 0.00 INR 2.69 H 4.01 H APTT 55 H Sodium 118 L* 116 L* Potassium 4.5 5.0 Chloride 92 L 89 L Carbon Dioxide 20 15 L BUN 21 22 Creatinine 0.9 1.2 Estimated Creat Clear 111.37 83.53 Estimated GFR 106 75 Glucose 122 H 82 Lactate 3.9 H Calcium 7.2 L 7.1 L Magnesium 1.4 L 1.9 Total Bilirubin 10.4 H 12.1 H Direct Bilirubin 6.7 H 7.7 H AST 189 H 411 H ALT 65 H 83 H Alkaline Phosphatase 260 H 205 H Ammonia 21.0 Total Protein 5.4 L 4.7 L Albumin 2.0 L 1.7 L Urine Opiates Screen Negative Ur Oxycodone Screen Negative Urine Methadone Screen Negative Ur Propoxyphene Screen Negative Ur Barbiturates Screen Negative U Tricyclic Antidepress Negative Ur Phencyclidine Scrn Negative Ur Amphetamines Screen Negative U Methamphetamines Scrn Negative U Benzodiazepines Scrn Negative Urine Cocaine Screen Negative U Marijuana (THC) Screen Negative Ur Drug Screen Comment See Note Ethyl Alcohol 0.13 H Blood Type B Positive Antibody Screen NEGATIVE Crossmatch (AHG) See Detail
[2022-11-22] MEDS: PHYTONADIONE (VIT K1) 5 MG in 0.9 % SODIUM CHLORIDE 50 ml 50 ML 100 MG IVPB (10:00)
--- NOTE | 2022-11-22 10:34 | PC.NURSE ---
Patient was moved from room 279 to CCU -3 d/t his labs and need a lot more workup. I gave report to Nicky GARDINER on patient but before i handed him off start 3% saline in his Right AC and vitamin K in the left AC. Patient is alert and orientated and aware of what is going on. His significant other was here when patient was transferred to critical care. Current trying to get patient a bed at [facility] due to status. Dr. Kline was update with critical labs.
[2022-11-22] MEDS: PIPERACILLIN/TAZOBACTAM 3.375 GM in 0.9 % SODIUM CHLORIDE Mini-bag 100 ML IVPB (11:18)
[2022-11-22 11:38] LABS: Lactate Dehydrogenase* 510 U/L (120-246); Total Protein* 4.7 g/dL (6.0-8.3)
[2022-11-22] MEDS: HYDROmorphone 0.5 mg/0.5 ml inj IVP (12:12)
[2022-11-22] MEDS: ONDANSETRON 2 MG/ML inj 4 MG IVP (12:16)
--- NOTE | 2022-11-22 14:33 | P.DS_ITS ---
DS: Providers Provider Date Seen: 11/22/22 Date of admission: 11/21/22 21:05 Primary care physician: Morgan Rosario MD Admitting Clinician: Basil Castellanos MD Consults: 11/21/22 21:06 Consult to Multimedia Programmer [CONS] Routine Comment: Reason for Consult:: Discharge Planning Needs 11/22/22 09:49 Consult to Physician [CONS] Routine Comment: diagnostic and therapeutic paracentesis Consulting Provider: Marissa Zapata Has provider been notified: No Attending Physician on discharge: Marcelo Kline MD Date of Discharge: 11/22/22 DS: Diagnosis Discharge Diagnosis (1) End stage liver disease: Status: Acute Problem details: TIPS February 2020. Prior to that was on liver transplant list. MELD score prior to tips was 29. Meld-Na score today is 32. (2) Acute blood loss anemia: Status: Acute Problem details: Due to coagulopathy causing severe nose bleed. Transfuse blood, 2 units. DS: Summary Hospital Course Hospital Course: Discharge Diagnosis 1. End Stage Liver Disease, Cirrhosis (Alcohol); worsening LFTs; transferring to [facility] ICU for GI consultation; hx of TIPS followed with [facility] 2. Acute Blood loss anemia; hgb 6.3 on admission transfused 2 units, labs this AM with hgb of 5.8; 2 units PRBC ordered 3. Acute Hyponatremia; sodium 118 on admission no subsequent sodium check till this morning sodium 116; started on IVF and hypertonic saline 4. Presumed GI bleed; likely UGI; treated with 2 additional units PRBC 5/5, FFP, Vitamin K, Octreotide infusion; Protonix 5. Presumed Sepsis; SBP likely; initially treated with oral levaquin on admission; transitioned to zosyn this AM 6. Coagulopathy; INR 4.0 this AM; given additional Vit K and FFP 7. Thrombocytopenia; plts 61; [facility] recommended plt transfusion; blood bank did not have plts available 8. Hx of Portal HTN 9. Alcohol withdrawal syndrome; placed on ciwa protocol 10. Nose bleed; underwent packing in ED 11. Hypomagnesemia; replacement protocol 12. Alcohol intoxication Transferred to [facility] for GI evaluation. unable to place PICC line and complete diagnostic/therapeutic paracentesis prior to discharge Imaging Findings/Impression: Moderate ascites present in all 4 quadrants. History of Present Illness Date Seen: 11/21/22 Chief complaint: Weakness Nosebleed Narrative: Stephen Lazar is a 47 year old male with end-stage alcoholic cirrhosis and facioscapulohumeral muscular dystrophy (FSMD) presents with acute on chronic weakness and epistaxis and worsening pain and drainage from his right leg.? Patient reports that he has had longstanding progressive weakness due to FSMD.? He reports that he normally has trouble walking and uses furniture and holding onto the wall for balance.? Today he was too weak to even walk.? He was able to walk earlier today and yesterday.? He also notes that he has had a profound nose bleed for the last 3 days.? He has been unable to get it to stop.? He says it was bleeding like a faucet on and off. He has cirrhosis of the liver.? He tells me about 3 years ago he was on the transplant list at the [facility].? He got a TIPS procedure and stopped drinking for a year and got good enough to get off the transplant list.? He tells me that he his MELD score was 29 at the highest.? He was getting weekly paracentesis for ascites before the tips procedure.? He reports he is drinking again but only drinking modestly.? He tells me his last drink was 3 days ago.? Around 2-3 years ago he was evaluated with upper endoscopy and was told he did not have esophageal varices.? He has not had any gastrointestinal bleeding, hematochezia or melena.? His alcohol level in the emergency department this afternoon was 0.13. This winter he was treated with 3 different antibiotics, Levaquin, doxycycline, cefadroxil for cellulitis of his right leg.? He does think it helps for a while but now it is worse.? He recognizes that he is retaining more fluid and having more edema in his legs. He has not had a fever.? He reports his breathing is gradually getting worse which he attributes to FSMD gradually getting worse.? He has not had chest pain.? He has not had nausea or vomiting.? He has been eating normally.? No abdominal pain.? He reports his bowels are normal without diarrhea or constipation. Time Spent with Patient Time attestation: Total time spent providing and/or coordinating discharge services: Specific discharge activities: 120 minutes Exam Narrative: Exam Narrative: Gen: moderate distress HEENT: NCAT EOMI scleral icterus Neck: Supple CV: tachycardic normal s1 s2 Lungs: CTAB Abd: generalized abdominal distention no rebound or guarding Neuro: Alert, oriented, CN grossly intact; nonfocal screening exam Psych: appropriate affect MSK: age appropriate muscle mass Skin; jaundiced Const: Vital Signs, click to edit/add: Vital Signs - 24 hr 11/21/22 14:47 11/21/22 15:01 11/21/22 15:02 Temperature Pulse Rate 121 H 124 H 126 H Pulse Rate [Pulse Oximeter] Respiratory Rate Blood Pressure 47/35 L Blood Pressure [Le ft Upper Arm] Blood Pressure [Ri ght Radial Artery] Pulse Oximetry 96 95 [facility] 15:03 11/21/22 15:04 11/21/22 15:15 Temperature Pulse Rate 122 H 124 H 121 H Pulse Rate [Pulse Oximeter] Respiratory Rate Blood Pressure 114/51 L Blood Pressure [Le ft Upper Arm] Blood Pressure [Ri ght Radial Artery] Pulse Oximetry 95 97 96 [facility] 11[facility]21/22 15:30 11/21/22 15:45 11/21/22 15:57 Temperature Pulse Rate 120 H 121 H Pulse Rate [Pulse Oximeter] Respiratory Rate Blood Pressure Blood Pressure [Le ft Upper Arm] Blood Pressure [Ri ght Radial Artery] Pulse Oximetry 95 98 100 [facility] 11/21/22 16:31 11/21/22 16:32 11/21/22 17:02 Temperature Pulse Rate 123 H Pulse Rate [Pulse Oximeter] Respiratory Rate Blood Pressure 130/58 L 117/48 L Blood Pressure [Le ft Upper Arm] Blood Pressure [Ri ght Radial Artery] Pulse Oximetry 91 Oxygen Delivery [facility] 11/21/22 17:25 11/21/22 17:30 11/21/22 17:31 Temperature Pulse Rate 138 H Pulse Rate [Pulse Oximeter] Respiratory Rate Blood Pressure 142/62 H Blood Pressure [Le ft Upper Arm] Blood Pressure [Ri ght Radial Artery] Pulse Oximetry 79 L 79 L 79 L Oxygen Delivery [facility] 11/21/22 17:45 11/21/22 18:00 11/21/22 18:02 Temperature Pulse Rate 230 H 127 H 133 H Pulse Rate [Pulse Oximeter] Respiratory Rate Blood Pressure 155/46 H Blood Pressure [Le ft Upper Arm] Blood Pressure [Ri ght Radial Artery] Pulse Oximetry 80 L 80 L 80 L Oxygen Delivery [facility] 11/21/22 18:03 11/21/22 18:32 11/21/22 18:44 Temperature Pulse Rate 117 H 122 H Pulse Rate [Pulse Oximeter] Respiratory Rate Blood Pressure 107/59 L Blood Pressure [Le ft Upper Arm] Blood Pressure [Ri ght Radial Artery] Pulse Oximetry 82 L 93 Oxygen Delivery [facility] 11/21/22 18:45 11/21/22 19:00 11/21/22 19:02 Temperature Pulse Rate 122 H 123 H 119 H Pulse Rate [Pulse Oximeter] Respiratory Rate Blood Pressure 109/41 L Blood Pressure [Le ft Upper Arm] Blood Pressure [Ri ght Radial Artery] Pulse Oximetry 93 95 92 [facility] 11/21/22 19:13 11/21/22 19:15 11/21/22 19:29 Temperature 97.8 F 98.0 F Pulse Rate 122 H 120 H Pulse Rate [Pulse Oximeter] 121 H Respiratory Rate 16 16 Blood Pressure 109/41 L Blood Pressure [Le ft Upper Arm] 116/44 L Blood Pressure [Ri ght Radial Artery] Pulse Oximetry 90 91 94 [facility] 11/21/22 19:30 11/21/22 20:11 11/21/22 21:04 Temperature 98.0 F 98.0 F 97.4 F L Pulse Rate 121 H 115 H Pulse Rate [Pulse Oximeter] 112 H Respiratory Rate 16 18 16 Blood Pressure 116/44 L 125/46 L Blood Pressure [Le ft Upper Arm] Blood Pressure [Ri ght Radial Artery] 145/76 H Pulse Oximetry 94 99 [facility] 11/21/22 21:24 11/21/22 21:39 11/21/22 21:44 Temperature 97.3 F L 97.6 F 97.6 F Pulse Rate 112 H 112 H 113 H Pulse Rate [Pulse Oximeter] Respiratory Rate 18 16 16 Blood Pressure 145/76 H 126/50 L 136/57 L Blood Pressure [Le ft Upper Arm] Blood Pressure [Ri ght Radial Artery] Pulse Oximetry 100 99 [facility] 11/21/22 22:00 11/21/22 22:07 11/21/22 22:29 Temperature 97.3 F L 97.8 F Pulse Rate 116 H 115 H Pulse Rate [Pulse Oximeter] 112 H Respiratory Rate 16 18 Blood Pressure 129/45 L Blood Pressure [Le ft Upper Arm] Blood Pressure [Ri ght Radial Artery] 145/76 H Pulse Oximetry 99 98 [facility] 11/22/22 00:47 11/22/22 00:47 11/22/22 01:02 Temperature 97.6 F Pulse Rate Pulse Rate [Pulse Oximeter] 115 H 112 H 120 H Respiratory Rate 16 18 16 Blood Pressure Blood Pressure [Le ft Upper Arm] Blood Pressure [Ri ght Radial Artery] 136/57 L Pulse Oximetry 98 98 Oxygen Delivery [facility] Room Air Room Air 11/22/22 03:00 11/22/22 05:00 11/22/22 06:00 Temperature 98.3 F 98.4 F Pulse Rate Pulse Rate [Pulse Oximeter] 117 H 126 H 124 H Respiratory Rate 16 18 18 Blood Pressure Blood Pressure [Le ft Upper Arm] Blood Pressure [Ri ght Radial Artery] 119/47 L Pulse Oximetry 98 99 97 Oxygen Delivery [facility] Room Air Room Air Room Air 11/22/22 07:00 11/22/22 11:02 11/22/22 11:19 Temperature 97.5 F L 97.2 F L 97.8 F Pulse Rate 108 H 118 H Pulse Rate [Pulse Oximeter] 119 H Respiratory Rate 22 18 18 Blood Pressure 102/50 L 114/42 L Blood Pressure [Le ft Upper Arm] Blood Pressure [Ri ght Radial Artery] 111/59 L Pulse Oximetry 97 Oxygen Delivery [facility] Room Air 11/22/22 11:21 11/22/22 11:37 11/22/22 12:06 Temperature 97 F L 97.8 F 97.5 F L Pulse Rate 118 H 121 H Pulse Rate [Pulse Oximeter] 118 H Respiratory Rate 16 18 18 Blood Pressure 115/53 L 106/46 L Blood Pressure [Le ft Upper Arm] Blood Pressure [Ri ght Radial Artery] 114/42 L Pulse Oximetry 99 98 100 [facility] 11/22/22 12:47 11/22/22 13:00 11/22/22 13:29 Temperature 97.5 F L 97.7 F 97.4 F L Pulse Rate 120 H 117 H Pulse Rate [Pulse Oximeter] 118 H Respiratory Rate 18 18 20 Blood Pressure 104/49 L 117/72 Blood Pressure [Le ft Upper Arm] Blood Pressure [Ri ght Radial Artery] 117/72 Pulse Oximetry 99 98 Oxygen Delivery [facility] Room Air DS: Data Data Completed and Pending Labs on day of discharge: Labs from last 24 hours 11/22/22 11/22/22 11/22/22 09:50 08:10 08:10 WBC 21.67 H RBC 1.82 L Hgb 5.8 L* Hct 16.5 L MCV 91 MCH 32 MCHC 35 RDW Coeff of Zelda 19.7 H Plt Count 66 L Neut % (Auto) 73.4 H Lymph % (Auto) 9.6 L Mcdonough % (Auto) 10.1 Eos % (Auto) 2.5 Baso % (Auto) 0.2 Neut # (Auto) 15.90 H Lymph # (Auto) 2.10 Mcdonough # (Auto) 2.20 H Eos # (Auto) 0.50 Baso # (Auto) 0.00 INR 4.01 H APTT Sodium 116 L* Potassium 5.0 Chloride 89 L Carbon Dioxide 15 L BUN 22 Creatinine 1.2 Estimated Creat Clear 83.53 Estimated GFR 75 Glucose 82 Lactate Calcium 7.1 L Magnesium 1.9 Total Bilirubin 12.1 H Direct Bilirubin 7.7 H AST 411 H ALT 83 H Alkaline Phosphatase 205 H Ammonia Lactate Baseline Cancelled Lactate Dehydrogenase 510 H Total Protein 4.7 L 4.7 L Albumin 1.7 L Urine Opiates Screen Ur Oxycodone Screen Urine Methadone Screen Ur Propoxyphene Screen Ur Barbiturates Screen U Tricyclic Antidepress Ur Phencyclidine Scrn Ur Amphetamines Screen U Methamphetamines Scrn U Benzodiazepines Scrn Urine Cocaine Screen U Marijuana (THC) Screen Ur Drug Screen Comment Ethyl Alcohol Blood Type Antibody Screen Crossmatch (AHG) 11/21/22 11/21/22 23:57 15:37 WBC 15.01 H RBC 1.95 L Hgb 6.3 L* Hct 17.5 L MCV 90 MCH 32 MCHC 36 RDW Coeff of Zelda 18.4 H Plt Count 87 L Neut % (Auto) 75.4 H Lymph % (Auto) 9.3 L Mcdonough % (Auto) 10.7 Eos % (Auto) 2.7 Baso % (Auto) 0.5 Neut # (Auto) 11.30 H Lymph # (Auto) 1.40 Mcdonough # (Auto) 1.60 H Eos # (Auto) 0.40 Baso # (Auto) 0.10 INR 2.69 H APTT 55 H Sodium 118 L* Potassium 4.5 Chloride 92 L Carbon Dioxide 20 BUN 21 Creatinine 0.9 Estimated Creat Clear 111.37 Estimated GFR 106 Glucose 122 H Lactate 3.9 H Calcium 7.2 L Magnesium 1.4 L Total Bilirubin 10.4 H Direct Bilirubin 6.7 H AST 189 H ALT 65 H Alkaline Phosphatase 260 H Ammonia 21.0 Lactate Baseline Lactate Dehydrogenase Total Protein 5.4 L Albumin 2.0 L Urine Opiates Screen Negative Ur Oxycodone Screen Negative Urine Methadone Screen Negative Ur Propoxyphene Screen Negative Ur Barbiturates Screen Negative U Tricyclic Antidepress Negative Ur Phencyclidine Scrn Negative Ur Amphetamines Screen Negative U Methamphetamines Scrn Negative U Benzodiazepines Scrn Negative Urine Cocaine Screen Negative U Marijuana (THC) Screen Negative Ur Drug Screen Comment See Note Ethyl Alcohol 0.13 H Blood Type B Positive Antibody Screen NEGATIVE Crossmatch (AHG) See Detail Discharge Plan Discharge Disposition: [facility] Date of Admission: 11/21/22 21:05 Primary Care Provider: Morgan Rosario Condition: Unchanged
--- NOTE | 2022-11-22 15:26 | PC.NURSE ---
Patient voided 150cc and had incont small amount x1. Output appeared rivera red. Patient received 1 unit PRBC and was started on second unit prior to transfer. Patient also started on FFP prior to transfer. NPO with some ice chips. Has two IV, one in each AC. Skin jaundice, abdomen distended and all extremities appeared edematous. Patient transferred to [facility] ICU, [id number] report given to ZULEYKA Gamez. EMS here for transport @ [id number].
== END 2022-11-22 13:49 | disposition short-term general hospital (02) | DRG 432 ==
LOC: ED 15:27 → MEDSURG 20:25
PROVIDERS: Hospitalist; Admitting Provider Family Medicine; Emergency Provider Family Medicine; PCP Family Medicine; Visit Provider Family Medicine
DX: K70.30 Alcoholic cirrhosis of liver without ascites (principal); A41.9 Sepsis, unspecified organism; D62 Acute posthemorrhagic anemia; F10.239 Alcohol dependence with withdrawal, unspecified; K76.6 Portal hypertension; K92.2 Gastrointestinal hemorrhage, unspecified; L03.115 Cellulitis of right lower limb; D68.4 Acquired coagulation factor deficiency; E87.1 Hypo-osmolality and hyponatremia; F10.229 Alcohol dependence with intoxication, unspecified; Y90.6 Blood alcohol level of 120-199 mg/100 ml; K70.40 Alcoholic hepatic failure without coma; R04.0 Epistaxis; B96.1 Klebsiella pneumoniae [K. pneumoniae] as the cause of diseases classified elsewhere; G71.02 Facioscapulohumeral muscular dystrophy; D64.9 Anemia, unspecified; I87.2 Venous insufficiency (chronic) (peripheral); M79.661 Pain in right lower leg; G89.29 Other chronic pain; E83.42 Hypomagnesemia; R00.0 Tachycardia, unspecified; G47.33 Obstructive sleep apnea (adult) (pediatric); D69.6 Thrombocytopenia, unspecified; I10 Essential (primary) hypertension; F17.210 Nicotine dependence, cigarettes, uncomplicated; M10.9 Gout, unspecified; K21.9 Gastro-esophageal reflux disease without esophagitis; E78.5 Hyperlipidemia, unspecified
CPT/HCPCS: 30901; 36415; 36430; 71045; 73502; 73590; 76705; 80048; 80053; 80076; 80306; 82042; 82077; 82140; 82248; 82945; 82962; 83605; 83615; 83735; 84155; 84157; 85025; 85610; 85730; 86850; 86900; 86901; 86922; 87070; 87077; 87186; 87205; 89051; 93970; 94761; 99285; 99291; A9153; A9270; C9113; J1170; J2405; J2543; J3010; J3430; J3475; J7050; J7131; P9016; P9017

== ENCOUNTER 2022-11-22 13:28 | Outpatient (CLI) | payer MEDICARE, OTHER, SELFPAY | END 2022-11-22 13:29 | disposition home or self-care (01) | LOC: AMB 11-26 15:23 | PROVIDERS: PCP Family Medicine; Visit Provider Family Medicine | DX: K70.30 Alcoholic cirrhosis of liver without ascites (principal); K92.1 Melena | CPT/HCPCS: A0425; A0428; A0434 ==